=== PATIENT | male | born 1970 | race African-American/Black ===

== ENCOUNTER 2022-12-09 12:12 | Outpatient (CLI) | payer MEDICAID, SELFPAY ==
--- NOTE | 2022-12-09 13:00 | MR_ITS ---
[address] [address] Phone:?[phone] Fax:?[phone] Referring Physician Information: Deb Miller M.D. [address] [place] [address] Phone:?[phone] Fax:?[phone] Patient:?Kendall Paul D.O.B:?1970 Sex:?Male Phone:?[phone] [facility] MRN:?[id number] Exam Date:?12/09/2022 EXAM: MRI of the RIGHT HAND, without contrast CLINICAL INFORMATION: Male, 52 years old, with bilateral hand pain and stiffness. INDICATION: Evaluate for polyarthritis. PRIOR SURGERY: None reported. PLAIN FILMS: None available. COMPARISONS: No prior MRIs available. TECHNICAL INFORMATION: Using a 1.5T MR scanner and a localizing surface coil: coronals: PD, T2, STIR sagittals: PD, T2 axials: PD, T2 SEDATION: None. CONTRAST: None. FINDINGS: Moderate subchondral edema/cystic changes present within the base of the triquetrum (coronal STIR series 4 images 10 & 11). The osseous structures of the right hand are otherwise unremarkable without stress/occult fractures, bone marrow edema or osseous mass. Minimal chondral thinning and osteophytosis of the 1st CMC joint (coronal PD series 5 images 9-11). The joint spaces of the right hand are otherwise unremarkable, without pathologic narrowing or effusions. No osseous erosions. Collateral capsuloligamentous structures of the joints appear intact. Flexor and extensor tendons are intact, without rupture, tendinopathy, tenosynovitis or longitudinal splitting. Musculature of the hand appears unremarkable without masses, rupture or strain. IMPRESSION: 1. 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 2. Moderate contusion versus reactive osseous changes in the base of the triquetrum, which is of uncertain clinical significance. 3. No fracture or osseous stress reaction. 4. No myotendinous abnormality. 5. No ligamentous sprain/tear. BC Electronically signed on 12/16/2022 3:37:00 PM by Kam Townsend M.D.
--- NOTE | 2022-12-09 13:45 | MR_ITS ---
[address] [address] Phone:?[phone] Fax:?[phone] Referring Physician Information: Deb Miller M.D. [address] [place] [address] Phone:?[phone] Fax:?[phone] Patient:?Kendall Paul D.O.B:?1970 Sex:?Male Phone:?[phone] [facility] MRN:?[id number] Exam Date:?12/09/2022 EXAM: MRI of the LEFT HAND, without contrast CLINICAL INFORMATION: Male, 52 years old, with bilateral hand pain and stiffness. INDICATION: Evaluate for polyarthritis. PRIOR SURGERY: None reported. PLAIN FILMS: None available. COMPARISONS: No prior MRIs available. TECHNICAL INFORMATION: Using a 1.5T MR scanner and a localizing surface coil: coronals: PD, T2, STIR sagittals: PD, T2 axials: PD, T2 SEDATION: None. CONTRAST: None. FINDINGS: Focal mild edema in the radial aspect of the 2nd metacarpal head, without fracture or erosion (coronal STIR series 4 image 17). The osseous structures of the left hand are otherwise unremarkable, without stress/occult fractures, bone marrow edema or osseous mass. Minimal chondral thinning and osteophytosis of the 1st CMC joint. The joint spaces of the left hand are otherwise unremarkable, without pathologic narrowing or effusions. Collateral capsuloligamentous structures of the joints appear intact. Flexor and extensor tendons are intact, without rupture, tendinopathy, tenosynovitis or longitudinal splitting. Musculature of the hand appears unremarkable without masses, rupture or strain. IMPRESSION: 1. 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 2. Focal mild edema in the radial aspect of the 2nd metacarpal head, which could reflect a contusion or be reactive. No discrete osseous erosion is seen. 3. No fracture or osseous stress reaction. 4. No myotendinous abnormality. 5. No ligamentous sprain/tear. BC Electronically signed on 12/16/2022 3:40:00 PM by Kam Townsend M.D.
== END 2022-12-09 12:13 | disposition home or self-care (01) ==
LOC: MRI 12:13
PROVIDERS: PCP Family Medicine; Visit Provider Internal Medicine Rheumatology
DX: M25.50 Pain in unspecified joint (principal); M79.642 Pain in left hand; M79.641 Pain in right hand; M19.042 Primary osteoarthritis, left hand; M19.041 Primary osteoarthritis, right hand
CPT/HCPCS: 73218

== ENCOUNTER 2023-01-09 09:07 | Outpatient (CLI) | payer MEDICAID, SELFPAY ==
[2023-01-09 13:50] LABS: Chloride* 101 mmol/L (96-114); Potassium* 4.1 mmol/L (3.6-5.1); Sodium* 139 mmol/L (135-149)
[2023-01-09 13:53] LABS: Alanine Aminotransferase* 28 U/L (4-50); Blood Urea Nitrogen* 16 mg/dL (7-30); Carbon Dioxide* 31 mmol/L (20-32); Creatinine* 1.1 mg/dL (0.5-1.5); Estimated Glomerular Filt Rate 81 ml/min; Glucose* 113 mg/dL (60-115)
[2023-01-09 13:54] LABS: Calcium* 9.3 mg/dL (8.4-10.6); HDL Cholesterol* 43 mg/dL (>=40); Triglycerides* 106 mg/dL (40-149)
[2023-01-09 14:28] LABS: HIV 1/2/P24 Combo Screen* Negative (Negative)
[2023-01-09 15:04] LABS: Chlamydia DNA Amplified* NOT DETECTED (No Detected); GC DNA Amplified* NOT DETECTED (No Detected)
[2023-01-09 16:03] LABS: Cholesterol* 131 mg/dL (90-199); LDL Cholesterol Calculated 65 mg/dL (<100)
[2023-01-10 11:26] LABS: Rapid Plasma Reagin (RPR) Non Reactive (Non Reactive)
== END 2023-01-09 09:08 | disposition home or self-care (01) ==
PROVIDERS: PCP Family Medicine; Visit Provider Family Medicine
DX: I10 Essential (primary) hypertension (principal); E78.5 Hyperlipidemia, unspecified; Z70.8 Other sex counseling; Z11.3 Encounter for screening for infections with a predominantly sexual mode of transmission
CPT/HCPCS: 80048; 80061; 84460; 86592; 86703; 87491; 87591

== ENCOUNTER 2023-03-10 12:02 | Outpatient (CLI) | payer MEDICAID, SELFPAY ==
--- NOTE | 2023-03-10 13:00 | MR_ITS ---
[facility] [address] [facility] [address] Phone:?[phone] Fax:?[phone] Referring Physician Information: Osvaldo Huggins M.D. [address] [facility] [address] Phone:?[phone] Fax:?[phone] Patient:Emely Paul D.O.B:?1970 Sex:?Male Phone:?[phone] [facility] MRN:?[id number] Exam Date:?03/10/2023 EXAM: MRI of the RIGHT KNEE, without contrast CLINICAL: Right knee pain. COMPARISONS: None available. TECHNICAL: Multiplanar multisequence MRI of the right knee was obtained. SEDATION: None. CONTRAST: None. FINDINGS: Ligaments: ACL: Intact and unremarkable. PCL: Intact and unremarkable. MCL: Intact and unremarkable. LCL: Intact and unremarkable. Posterolateral corner: Popliteus, biceps femoris, iliotibial band, and the popliteofibular ligament appear intact. Posteromedial corner: Semimembranosus, pes anserine tendons and posterior oblique ligament appear intact. Extensor mechanism: Patellar tendon: Intact, without tendinopathy. Quadriceps tendon: Intact, without tendinopathy. Retinacula: Medial and lateral retinacula are intact. Fat pads: Unremarkable infrapatellar Hoffa's, quadriceps and prefemoral fat pads. Patellofemoral joint: Patella: There is chondral heterogeneity and deep chondral fissuring involving the medial and lateral facets. Trochlea: No significant chondromalacia. Medial compartment: Medial meniscus: No evidence of discrete meniscal tear or meniscal displacement. Medial cartilage: There is chondral heterogeneity and deep chondral fissuring involving the weight-bearing medial femoral condyle with minimal underlying subchondral reactive marrow edema. Medial tibial plateau cartilage is preserved. Lateral compartment: Lateral meniscus: No evidence of discrete meniscal tear or meniscal displacement. Lateral cartilage: There is chondral heterogeneity and deep chondral fissuring involving the lateral tibial plateau with minimal underlying subchondral reactive marrow edema. Lateral femoral condyle cartilage is preserved. Knee joint: Effusion: Physiologic right knee effusion. Intra-articular bodies:?No convincing bodies identified. Popliteal cyst: None. Bones: No suspicious bone marrow signal alteration or fracture line. IMPRESSION: 1. Scattered deep chondral fissuring involving the patella, weightbearing medial femoral condyle and lateral tibial plateau, with minimal underlying subchondral reactive marrow edema. 2. No additional internal derangement identified including no evidence of meniscal tear, ligamentous injury or fracture. JCZ Electronically signed on 03/10/2023 4:47:00 PM by Sagar De Jesus D.O.
== END 2023-03-10 12:03 | disposition home or self-care (01) ==
LOC: MRI 12:03
PROVIDERS: PCP Family Medicine; Visit Provider Family Medicine
DX: M25.561 Pain in right knee (principal)
CPT/HCPCS: 73721

== ENCOUNTER 2023-10-13 09:37 | Outpatient (CLI) | payer MEDICAID, SELFPAY ==
--- NOTE | 2023-10-13 10:00 | CT_ITS ---
Patient: CRISTINA MEAD Facility:?[facility] Patient ID:?[id number] Site Patient ID:?[id number]. Site :?1970 Study:?CT-Chest LOW DOSE-10/13/2023 10:04:35 AM Ordering Physician:?DR. MCCLENDON Final Report: INDICATION: Lung cancer screening. History of smoking. High risk patient with greater than 20 pack-year smoking history. TECHNIQUE: Low-dose lung cancer screening non-contrast CT chest. Dose reduction techniques were used. COMPARISON: None. FINDINGS: NODULES: None. LUNGS AND PLEURA: Mild emphysema. No infiltrate. No effusion. MEDIASTINUM: Calcified right hilar and mediastinal lymph nodes. Residual thymic tissue in the anterior mediastinum. No suspicious lymph nodes. CORONARY ARTERY CALCIFICATION: Present. LIMITED UPPER ABDOMEN: Unremarkable. MUSCULOSKELETAL: Degenerative changes. No fracture. IMPRESSION: Negative for lung cancer screening purposes. LUNG-RADS CATEGORY: 1: Negative. RADIOLOGIST RECOMMENDATION: Continue annual screening with low-dose CT chest in 12 months. Please note that all CT scans at this facility use dose modulation, iterative reconstruction, and/or weight-based dosing when appropriate to reduce radiation dose to as low as reasonably achievable. Dictated by Osvaldo Harmon MD @ 10/13/2023 11:52:41 AM Signed by:?Osvaldo Harmon MD @10/13/2023 11:52:41 AM (Electronic Signature)
== END 2023-10-13 09:38 | disposition home or self-care (01) ==
LOC: CT 09:39
PROVIDERS: PCP Family Medicine; Visit Provider Internal Medicine
DX: Z12.2 Encounter for screening for malignant neoplasm of respiratory organs (principal); F17.200 Nicotine dependence, unspecified, uncomplicated
CPT/HCPCS: 71271

== ENCOUNTER 2024-01-02 10:54 | Outpatient (CLI) | payer MEDICAID, SELFPAY | END 2024-01-02 10:55 | disposition home or self-care (01) | PROVIDERS: PCP Family Medicine; Visit Provider Family Medicine | DX: E78.2 Mixed hyperlipidemia (principal); I10 Essential (primary) hypertension; R53.83 Other fatigue; Z12.5 Encounter for screening for malignant neoplasm of prostate; Z13.21 Encounter for screening for nutritional disorder; Z13.29 Encounter for screening for other suspected endocrine disorder | CPT/HCPCS: 80048; 80061; 82306; 84443; 84460; 85025; G0103 ==

== ENCOUNTER 2025-02-14 08:10 | Outpatient (CLI) | payer MEDICAID, SELFPAY | END 2025-02-14 08:11 | disposition home or self-care (01) | PROVIDERS: PCP Family Medicine; Visit Provider Family Medicine | DX: E78.2 Mixed hyperlipidemia (principal); Z12.5 Encounter for screening for malignant neoplasm of prostate | CPT/HCPCS: 80048; 80061; 84460; G0103 ==